=== PATIENT | male | born 1940 | race Caucasian/White ===

== ENCOUNTER 2016-10-21 14:18 | Emergency (ER) | payer MEDICARE ==
[2016-10-21] MEDS ORDERED: SUBLIMAZE 100 MCG/2 ML IV ONE ×3 (14:42→15:42)
[2016-10-21] MEDS ORDERED: SUBLIMAZE 100 MCG/2 ML ONE ×4 (14:47→16:23)
--- NOTE | 2016-10-21 14:59 | ERPHSYRPT ---
- History of Present Illness Time Seen by Provider: 10/21/16 14:38 Source: patient, family (cousin) Patient Subjective Stated Complaint: PT REPORTS FALLING ET HITTING HIS LEFT SHOULDER-REPORTS SEVERE PAIN ET TINGLING TO FINGERS Triage Nursing Assessment: OBVIOUS DEFORMITY NOTED-RADIAL PULSE REGULAR ET STRONG-CAP REFILL 3 SECONDS-PT REPORTS FEELING TO ALL FINGERS-PT PALE DIAPHOETIC UPON ARRIVAL Physician History: CC: left shoulder injury Hx: 76 y/o patient fell and hurt left shoulder. No other injuries. He last at at 11:30- double cheeseburgers. Hx of prior back surgery. No prior problems with anesthesia. Some tingling in the left hand. Pain in shoulder is severe. Injury [employer]. No chest pain or dyspnea. No N/V. Surg: Back ILL: High chol. No hx of heart disease or DM. Occurred: just prior to arrival Extremities Pain Location: shoulder: left Allergies/Adverse Reactions: No Known Drug Allergies Allergy (Verified 10/21/16 14:38) Home Medications: Aspirin 81 gm Chew [Baby Aspirin 81 mg Chew] 81 mg PO DAILY 10/21/16 [ History] Hx Tetanus, Diphtheria Vaccination/Date Given: No Hx Influenza Vaccination/Date Given: No Hx Pneumococcal Vaccination/Date Given: No Immunizations Up to Date: Yes - Review of Systems Constitutional: No Fever, No Chills Eyes: No Symptoms Ears, Nose, & Throat: No Symptoms Respiratory: No Cough, No Dyspnea Cardiac: No Chest Pain Abdominal/Gastrointestinal: No Abdominal Pain Musculoskeletal: Fall, Injury (left shoulder), No Back Pain, No Neck Pain Neurological: Parasthesia (left hand), No Focal Weakness All Other Systems: Reviewed and Negative - Past Medical History Pertinent Past Medical History: No - Past Surgical History Past Surgical History: Yes Musculoskeletal: Orthopedic Surgery - Social History Smoking Status: Never smoker Exposure to second hand smoke: No Drug Use: marijuana Patient Lives Alone: No - Nursing Vital Signs Nursing Vital Signs: Initial Vital Signs Temperature 97.8 F Temperature Source Oral Pulse Rate 60 Respiratory Rate 18 Blood Pressure [Right Arm] 142/77 Pain Intensity 6 - Physical Exam General Appearance: alert Eyes, Ears, Nose, Throat Exam: normal ENT inspection, moist mucous membranes Neck Exam: normal inspection, non-tender, supple, No tenderness midline Cardiovascular/Respiratory Exam: chest non-tender, normal breath sounds, regular rate/rhythm Abdominal Exam: non-tender, soft Back Exam: normal inspection, No vertebral tenderness Shoulder Exam: asymmetry, bone tenderness (left shoulder), deformity (left shoulder) Elbow/Forearm Exam: normal inspection, non-tender, no evidence of injury Wrist Exam: normal inspection, non-tender, no evidence of injury Hand Exam: normal inspection, non-tender, no evidence of injury Neuro/Tendon Exam: normal sensation, normal motor functions Mental Status Exam: alert, oriented x 3, cooperative Skin Exam: warm, dry, No rash SpO2 Interpretation: normal SpO2: 96 Oxygen Delivery: Room Air Procedures - Joint Reduction Joint Reduction Site: Left, shoulder Conscious Sedation: No Reduction Attempts: 1 Pre-Procedure Neurovascular Exam: neurovascular intact, well perfused, no neuro deficit Post Procedure Neurovascular Exam: neurovascular intact, good alignment Post Joint Reduction Film: joint reduced Progress: Pt tolerated external rotation and reduction with lidocaine and fentanyl. Sedation not needed. Tolerated well. Instr given. He plans to follow in [place] with Dr Payne. - Course Nursing assessment & vital signs reviewed: Yes Ordered Tests: Active Orders 24 hr Category Date Time Status CO2 Monitoring STAT Care 10/21/16 15:17 Active Equipment Mechanic Specialist STAT Care 10/21/16 15:17 Active Cold Application STAT Care 10/21/16 14:43 Active IV Insertion STAT Care 10/21/16 14:42 Active Immobilizer STAT Care 10/21/16 16:11 Active NPO (ED) STAT Care 10/21/16 14:20 Active Pulse Oximetry (ED) STAT Care 10/21/16 15:17 Active SHOULDER Stat Exams 10/21/16 14:42 Completed SHOULDER Stat Exams 10/21/16 16:11 Completed Medication Summary Generic Name Dose Route Start Last Admin Trade Name Freq PRN Reason Stop Dose Admin Sodium Chloride 1,000 mls @ 100 mls/hr 10/21/16 15:15 10/21/16 15:17 Sodium Chloride 0.9% 1000 Ml IV 11/20/16 15:14 100 mls/hr .Q10H WM Administration Discontinued Medications Generic Name Dose Route Start Last Admin Trade Name Freq PRN Reason Stop Dose Admin Fentanyl Citrate 50 mcg 10/21/16 14:42 10/21/16 14:50 Sublimaze 100 Mcg/2 Ml IV 10/21/16 14:43 50 mcg STAT ONE Administration Fentanyl Citrate Confirm 10/21/16 14:47 Sublimaze 100 Mcg/2 Ml Administered 10/21/16 14:48 Dose 100 mcg .ROUTE .STK-MED ONE Fentanyl Citrate 50 mcg 10/21/16 15:10 10/21/16 15:17 Sublimaze 100 Mcg/2 Ml IV 10/21/16 15:11 50 mcg STAT ONE Administration Fentanyl Citrate Confirm 10/21/16 15:11 Sublimaze 100 Mcg/2 Ml Administered 10/21/16 15:12 Dose 100 mcg .ROUTE .STK-MED ONE Fentanyl Citrate 50 mcg 10/21/16 15:42 10/21/16 15:46 Sublimaze 100 Mcg/2 Ml IV 10/21/16 15:43 50 mcg STAT ONE Administration Fentanyl Citrate Confirm 10/21/16 15:42 Sublimaze 100 Mcg/2 Ml Administered 10/21/16 15:43 Dose 100 mcg .ROUTE .STK-MED ONE Fentanyl Citrate Confirm 10/21/16 16:23 Sublimaze 100 Mcg/2 Ml Administered 10/21/16 16:24 Dose 300 mcg .ROUTE .STK-MED ONE Flumazenil Confirm 10/21/16 15:39 Romazicon 0.5 Mg/5 Ml Injection Administered 10/21/16 15:40 Dose 0.1 mg .ROUTE .STK-MED ONE Lidocaine HCl 10 ml 10/21/16 15:41 10/21/16 15:46 Xylocaine 1% Hcl 20 Ml Mdv IJ 10/21/16 15:42 10 ml STAT ONE Administration Lidocaine HCl Confirm 10/21/16 15:42 Xylocaine 1% Hcl 20 Ml Mdv Administered 10/21/16 15:43 Dose 1 ml .ROUTE .STK-MED ONE - Progress Progress Note: 10/21/16 15:38 Fentanyl given for pain. He has shoulder dislocation. Discussed reduction including risks of injury, nerve injury, sedation risk. Advised he is a little more at risk for sedation due to high chol, age 76, and ate meal at 11:30. He and cousin understand risks and wish to proceed. 10/21/16 15:52 10ml 1% plain lidocaine injected left shoulder intrarticular. - Departure Time of Disposition: 16:50 Departure Disposition: Home Clinical Impression: Dislocation of left shoulder joint Qualifiers: Encounter type: initial encounter Qualified Code(s): S43.005A - Unspecified dislocation of left shoulder joint, initial encounter Condition: Stable Critical Care Time: No Referrals: BENJI ROMERO MD [Primary Care Provider] - Instructions: Shoulder Dislocation Additional Instructions: Wear immobilizer. Ice packs off and on. Rx norco if needed for pain. No driving or operating machinery. Follow up Wed with Dr Romero. Return for problems or concerns. Prescriptions: Hydrocodone Bit/Acetaminophen [[place] 5-325 Tablet] 1 each PO Q6H PRN PRN #20 tablet PRN Reason: Pain
[2016-10-21] MEDS ORDERED: Sodium Chloride 0.9% 1000 ML 1,000 ML ONE (15:11)
[2016-10-21] MEDS ORDERED: Sodium Chloride 0.9% 1000 ML 1,000 ML IV SCH (15:15)
--- NOTE | 2016-10-21 15:36 | XRAY ---
Exam: 3 views of the left shoulder from 10/21/2016. Comparison: None. Indication: Fell, left shoulder pain. Findings: 3 images reveal an anterior subcoracoid dislocation of the left shoulder. I see no definite associated fracture on these images. 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 Impression: 1. Anterior subcoracoid dislocation of the left shoulder.
[2016-10-21] MEDS ORDERED: Romazicon 0.5 MG/5 ML Injection ONE (15:39)
[2016-10-21] MEDS ORDERED: XYLOCAINE 1% HCL 20 ML MDV IJ ONE (15:41)
[2016-10-21] MEDS ORDERED: XYLOCAINE 1% HCL 20 ML MDV ONE (15:42)
[2016-10-21 16:44] VITALS: BP 142/77; PULSE 60
--- NOTE | 2016-10-21 16:48 | XRAY ---
Exam: Two-view postreduction left shoulder films from 10/21/2016. Comparison: Prereduction left shoulder films from 10/21/2016. Indication: Subcoracoid anterior dislocation of the left shoulder following a fall injury. Findings: AP internal rotation and AP external rotation postreduction views were obtained. There has been satisfactory reduction of the previously noted left shoulder dislocation. No fracture is seen. The glenohumeral joint space appears unremarkable. Mild degenerative change of the left acromioclavicular joint is seen. No suspicious periarticular soft tissue calcifications are seen. Impression: 1. Successful interval reduction of prior anterior subcoracoid left shoulder dislocation. No associated fracture is seen.
[2016-10-21 16:51] VITALS: O2SAT 96
== END 2016-10-21 17:04 | disposition home or self-care (01) ==
LOC: ED 14:18
PROC: 0RSKXZZ Reposition Left Shoulder Joint, External Approach (ICD-10-PCS; principal; 2016-10-21)
DX: S43.005A Unspecified dislocation of left shoulder joint, initial encounter (principal); W19.XXXA Unspecified fall, initial encounter; R20.9 Unspecified disturbances of skin sensation
CPT/HCPCS: 23650; 36000; 73030; 93041; 94770; 94799; 96360; 96361; 96374; 96376; 99285; J3010; L3650